=== PATIENT | female | born 1995 | race African-American/Black ===

== ENCOUNTER 2017-10-04 00:30 | Emergency (ER) | payer BC, SELFPAY ==
[2017-10-04] MEDS ORDERED: HYDROcodone/Acetaminophen 10/325 mg Tablet ONE (00:55)
== END 2017-10-04 01:00 | disposition home or self-care (01) ==
LOC: NAV ERS 00:30
DX: H10.9 Unspecified conjunctivitis (principal)
CPT/HCPCS: 99282

== ENCOUNTER 2018-06-10 14:15 | Emergency (ER) | payer BC, SELFPAY ==
[2018-06-10] MEDS ORDERED: Fluorescein Opthalmic Strip ONE (14:32)
[2018-06-10] MEDS ORDERED: Proparacaine 0.5% Opth 15 ML BOT ONE (14:32)
== END 2018-06-10 15:28 | disposition home or self-care (01) ==
LOC: NAV ERS 14:15
DX: S05.01XA Injury of conjunctiva and corneal abrasion without foreign body, right eye, initial encounter (principal); X58.XXXA Exposure to other specified factors, initial encounter
CPT/HCPCS: 99283

== ENCOUNTER 2020-12-21 16:40 | Emergency (ER) | payer BC, MEDICAID, OTHER ==
[2020-12-22 11:10] LABS: SARS-CoV-2 PCR by NAA DETECTED (NotDetected)
== END 2020-12-21 17:37 | disposition home or self-care (01) ==
LOC: NAV ERS 16:40
DX: B34.9 Viral infection, unspecified (principal); Z20.822 Contact with and (suspected) exposure to COVID-19
CPT/HCPCS: 99283; U0003; U0005